=== PATIENT | male | born 1955 | race Caucasian/White ===

== ENCOUNTER 2016-08-21 08:24 | Emergency (ER) | payer MEDICARE, OTHER ==
[~2016-08-21 08:24] MED LIST: ATIV0.5T; DEPA500T; DEPA500T2; ZYPR10TA; ZYPR20TA
[2016-08-21] MEDS ORDERED: METF500T13 PO (08:37)
[2016-08-21] MEDS ORDERED: LORazepam 1 MG TAB PO STA (08:52)
[2016-08-21 08:57] LABS: MEAN CORPUSCULAR HEMOGLOBIN 32.7 pg (27.0-33.0); MEAN CORPUSCULAR HGB CONC 34.5 g/dl (32.0-36.5); MEAN CORPUSCULAR VOLUME 94.6 fl (80.0-96.0); RED CELL DISTRIBUTION WIDTH 12.8 % (11.5-14.5); WHITE BLOOD COUNT 9.6 K/mm3 (4.0-10.0)
[2016-08-21 09:40] LABS: ALBUMIN 3.5 GM/DL (3.2-5.2); ALBUMIN/GLOBULIN RATIO 1.13 (1.00-1.93); ALKALINE PHOSPHATASE 87 U/L (45-117); ALT/SGPT 29 U/L (12-78); ANION GAP 6 MEQ/L (8-16); AST/SGOT 13 U/L (15-37); BILIRUBIN,DIRECT 0.3 MG/DL (0.0-0.2); BILIRUBIN,TOTAL 0.9 MG/DL (0.2-1.0); BLOOD UREA NITROGEN 8 MG/DL (7-18); CALCIUM LEVEL 8.9 MG/DL (8.8-10.2); CARBON DIOXIDE LEVEL 32 MEQ/L (21-32); CHLORIDE LEVEL 102 MEQ/L (98-107); CREATININE FOR GFR 0.84 MG/DL (0.70-1.30); GLOMERULAR FILTRATION RATE > 60.0 (>49); GLUCOSE, FASTING 153 MG/DL (80-110); POTASSIUM SERUM 4.4 MEQ/L (3.5-5.1); SODIUM LEVEL 140 MEQ/L (136-145); TOTAL PROTEIN 6.6 GM/DL (6.4-8.2)
--- NOTE | 2016-08-21 10:09 | REP ---
Clinical: Cough . Comparison: None . Findings: The mediastinum and cardiac silhouette are stable and within normal limits for portable technique. The lung almodovar are clear without acute consolidation, effusion, or pneumothorax. Skeletal structures are intact. Impression: No acute cardiopulmonary process appreciated. Signed by Cristiano Marr MD 08/21/2016 10:01 A
[2016-08-21 12:34] VITALS: BP 116/75
--- NOTE | 2016-08-21 20:56 | ECGEPIP ---
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
== END 2016-08-21 12:36 | disposition left against medical advice (07) ==
LOC: M ED 08:24 → EDBD 08:24 → M ED 12:36
DX: F45.9 Somatoform disorder, unspecified (principal); F25.9 Schizoaffective disorder, unspecified; Z53.21 Procedure and treatment not carried out due to patient leaving prior to being seen by health care provider; F17.200 Nicotine dependence, unspecified, uncomplicated; Z79.84 Long term (current) use of oral hypoglycemic drugs; Z88.8 Allergy status to other drugs, medicaments and biological substances
CPT/HCPCS: 71010; 80048; 80076; 84443; 85027; 93005; 99284; G0480

== ENCOUNTER 2016-08-25 23:44 | Inpatient (IN) | payer MEDICARE, OTHER ==
[~2016-08-25] VITALS: Ht 177.8 cm; Wt 118.2 kg
[~2016-08-25 23:44] MED LIST changes: +METF500T13 PO
[2016-08-26 02:54] LABS: MEAN CORPUSCULAR HEMOGLOBIN 31.6 pg (27.0-33.0); MEAN CORPUSCULAR HGB CONC 33.1 g/dl (32.0-36.5); MEAN CORPUSCULAR VOLUME 95.6 fl (80.0-96.0); RED CELL DISTRIBUTION WIDTH 13.1 % (11.5-14.5); WHITE BLOOD COUNT 8.2 K/mm3 (4.0-10.0)
[2016-08-26 03:15] LABS: ALBUMIN 3.9 GM/DL (3.2-5.2); ALBUMIN/GLOBULIN RATIO 1.18 (1.00-1.93); ALKALINE PHOSPHATASE 91 U/L (45-117); ALT/SGPT 33 U/L (12-78); ANION GAP 6 MEQ/L (8-16); AST/SGOT 19 U/L (15-37); BILIRUBIN,DIRECT 0.2 MG/DL (0.0-0.2); BILIRUBIN,TOTAL 0.6 MG/DL (0.2-1.0); BLOOD UREA NITROGEN 8 MG/DL (7-18); CALCIUM LEVEL 9.3 MG/DL (8.8-10.2); CARBON DIOXIDE LEVEL 30 MEQ/L (21-32); CHLORIDE LEVEL 101 MEQ/L (98-107); CREATININE FOR GFR 0.76 MG/DL (0.70-1.30); GLOMERULAR FILTRATION RATE > 60.0 (>49); GLUCOSE, FASTING 120 MG/DL (80-110); METHADONE URINE NEGATIVE (NEGATIVE); POTASSIUM SERUM 4.3 MEQ/L (3.5-5.1); SODIUM LEVEL 137 MEQ/L (136-145); TOTAL PROTEIN 7.2 GM/DL (6.4-8.2)
[2016-08-26] MEDS ORDERED: PALIPERIDONE 6 MG ER TAB (INVEGA) PO SCH (09:00)
[2016-08-26 09:11] VITALS: BP 108/81
[2016-08-26] MEDS ORDERED: MOM 30ML SUSPENSION UDC PO PRN (10:30)
[2016-08-26] MEDS ORDERED: LORazepam 1 MG TAB PO PRN (10:30)
[2016-08-26] MEDS ORDERED: diphenhydrAMINE 50 MG CAP PO PRN (10:30)
[2016-08-26] MEDS ORDERED: traZODone 50 MG TAB PO PRN (10:30)
[2016-08-26] MEDS ORDERED: ACETAMINOPHEN TAB 650MG DOSE (2X325MG) PO PRN (10:30)
[2016-08-26] MEDS ORDERED: MAALOX 30 ML SUSP *UDC PO PRN (10:30)
[2016-08-26] MEDS: NICOTINE 21MG/24HR 1 EA TRANSDERMAL TD SCH (11:00)
--- NOTE | 2016-08-26 11:11 | HPEPDOC ---
Medical History and Physical Date of Admission Aug 26, 2016 at 05:47 History and Physical PCP: None ATTENDING: Dr. Gregg Rodriguez HPI: 61yoM admitted to [facility] for unspecified depressive disorder, being medically examined today. The pt is a poor historian and has difficulty answering questions. Pt states he has chronic pain, chronic back pain, hip pain and knee pain. He states he is disabled and wheel chair bound. Denies any fevers, chills, weakness, fatigue, CORTES, CP, SOB, cough, palpitations, abdominal pain, N/V/D or changes in bowel or bladder habits. PMHx: Schizoaffective disorder H/O alcohol use chronic pain, back pain, hip pain, knee pain. Unsteady gait GERD NIDDM obesity BMI 37.4 PSHX: denies SOCHX: [facility] in: [facility] Marital Status: Kids: 2 Employment: unemployed Tobacco use: 2-3 ppd ETOH: states 2 cans per day Illicit Drugs: marijuana IV Drug Use: Denies Tattoos done unprofessionally: Denies FAMHX: Mother: Alive, unknown Father: , [place] Siblings: 1 sister Alive, unknown Children: Alive, unknown Unexpected deaths due to medical reasons: None. ROS: As noted in HPI, otherwise 11pt ROS of systems reviewed and unremarkable. PE: GEN: 61yoM, appears stated age. Well-nourished, well developed. No acute distress. Alert. He has eyes closed throughout exam, difficult to answer questions, variable responses. Tangential speech. HEENT: Normocephalic, atraumatic. Pupils are equal, round, and reactive to light. Extraocular movements are intact. No nystagmus appreciated. Sclera are nonicteric. Conjunctiva without injection. Nose midline. Nasal turbinates without bogginess. EACs both patent BL. TMs both visualized and bell with good cone of light, no bulging or erythema. No facial asymmetry. Moist mucous membranes. Dentition poor. Pharynx pink and moist. Neck supple, trachea midline. No lymphadenopathy or thyromegaly appreciated. CHEST: Regular rate and rhythm, +S1, +S2 LUNGS: Clear to auscultation bilaterally. No wheezes, rales, or rhonchi. Breathing appears symmetric and easy. Patient is speaking in full sentences. No accessory muscle use. ABD: Round, soft, non-tender, non-distended. +Bowel sounds throughout. No rebound or guarding. No costovertebral angle tenderness. EXT: Pulses 2+ bilaterally dorsalis pedis and radial. No lower extremity edema appreciated. Chronic venous stasis changes LEs. SKIN: [place], dry, warm. No rashes. NEURO: Alert and oriented x 3. Cranial nerves III-XII are intact. No focal deficits appreciated. EK08/21/16 SINUS RHYTHM LOW VOLTAGE LIMB NO PRIOR FOR COMPARISON A&P: 61yoM admitted to [facility] for unspecified depressive disorder 1. Psych. Plan per Psychiatry. EKG on file. 2. Nicotine dependence. Patch available. 3. NIDDM. Pt has not been on any medications as outpt. BS 120 on admission, unclear if this was fasting. Check Hemoglobin A1c. Update fasting lipids. 4. Follow up. No Primary Care Provider. Will attempt to establish PCP on discharge. 5. H/O substance use. Per psychiatry. 6. Chronic pain. Pt states h/o chronic back pain, knee pain, hip pain. No specific or new complaints at this time. No medications as outpt. Tylenol as needed. Consider pain management opinion if needed. 7. Unsteady gait. Pt states he is wheelchair bound. Request PT eval and treat. Fall precautions. 8. Obesity. BMI 37.4. Complicates care. TSH WNL. 9. Staff member Fredis present throughout exam. Vital Signs Vital Signs Date Time Temp Pulse Resp B/P (MAP) Pulse Ox O2 Delivery O2 Flow Rate FiO2 08/26/16 09:12 20 92 Room Air 08/26/16 09:11 92 108/81 (90) 08/26/16 08:26 98.8 Laboratory Data Labs 24H Laboratory Tests 2 08/26/16 01:41: Anion Gap 6L, Glomerular Filtration Rate > 60.0, Calcium Level 9.3, Aspartate Amino Transf (AST/SGOT) 19, Alanine Aminotransferase (ALT/SGPT) 33, Alkaline Phosphatase 91, Total Bilirubin 0.6, Direct Bilirubin 0.2, Total Protein 7.2, Albumin 3.9, Albumin/Globulin Ratio 1.18, Thyroid Stimulating Hormone (TSH) 0.756, Salicylates Level 2.5L, Urine Amphetamines Screen NEGATIVE, Urine Benzodiazepines Screen NEGATIVE, Urine Opiates Screen NEGATIVE, Urine Methadone Screen NEGATIVE, Acetaminophen Level < 2.0L, Urine Barbiturates Screen NEGATIVE , Urine Phencyclidine Screen NEGATIVE, Urine Cocaine Metabolite Screen NEGATIVE , Urine Cannabinoids Screen NEGATIVE, Ethyl Alcohol Level < 0.003 CBC/BMP Laboratory Tests 08/26/16 01:41 Red Blood Count 5.82, Mean Corpuscular Volume 95.6, Mean Corpuscular Hemoglobin 31.6, Mean Corpuscular Hemoglobin Concent 33.1, Red Cell Distribution Width 13.1 Home Medications No Active Prescriptions or Reported Meds Allergies Coded Allergies: No Known Allergies (Verified , 03/25/09) Genie Browne Aug 26, 2016 11:11
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
[2016-08-26 18:00] VITALS: BP 134/72
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
[2016-08-27] MEDS: PALIPERIDONE 3 MG ER TAB (INVEGA) PO SCH (09:00)
[2016-08-27] MEDS: NICOTINE 21MG/24HR 1 EA TRANSDERMAL TD SCH (09:00)
[2016-08-27] MEDS ORDERED: OLANZapine ORAL DISINTEGRATING TAB 5MG PO PRN (17:45)
[2016-08-27] MEDS: LORazepam 1 MG TAB PO SCH (21:55)
[2016-08-28] MEDS: PALIPERIDONE 3 MG ER TAB (INVEGA) PO SCH ×2 (09:00→09:17)
[2016-08-28] MEDS: NICOTINE 21MG/24HR 1 EA TRANSDERMAL TD SCH ×2 (09:00→09:17)
[2016-08-28] MEDS: LORazepam 1 MG TAB PO SCH ×4 (09:00→21:00)
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
[2016-08-29] MEDS: NICOTINE 21MG/24HR 1 EA TRANSDERMAL TD SCH (09:00)
[2016-08-29] MEDS: LORazepam 1 MG TAB PO SCH ×3 (09:00→21:00)
[2016-08-29] MEDS: PALIPERIDONE 3 MG ER TAB (INVEGA) PO SCH (09:00)
--- NOTE | 2016-08-29 19:42 | IPN ---
DATE: 08/29/2016 VITAL SIGNS: Respirations 17. CURRENT MEDICATIONS: - Invega 3 mg at bedtime - trazodone 50 mg at bedtime as needed - Ativan 1 mg three times a day SUBJECTIVE: This is a 61-year-old white male with history of schizoaffective disorder and alcohol use disorder. The patient is isolating a lot today, spending most of his time in bed. He is not socializing with other patients or attending groups. He is encouraged to do so. The patient states his medications are fine but he had refused his psychotropics. He is urged to be medication compliant. MENTAL STATUS EXAMINATION: The patient is a poor historian. He is anxious. He is irritable. He is sad. He is depressed. He talks to himself. Grooming and hygiene are poor. The patient shows possible paranoia but does not cooperative with full mental status exam. DIAGNOSIS: Schizoaffective disorder, depressed. PLAN: Encourage psychotropics.
[2016-08-30] MEDS: LORazepam 1 MG TAB PO SCH ×3 (09:00→21:00)
[2016-08-30] MEDS: PALIPERIDONE 3 MG ER TAB (INVEGA) PO SCH (09:00)
[2016-08-30] MEDS: NICOTINE 21MG/24HR 1 EA TRANSDERMAL TD SCH (09:00)
--- NOTE | 2016-08-30 21:27 | IPN ---
DATE: 08/30/2016 VITAL SIGNS: Temperature 98.3, respirations 20. CURRENT MEDICATIONS: - Invega 3 mg daily, patient refusing HISTORY OF PRESENT ILLNESS: The patient is seen in bed again today. He refuses to cooperate with an interview. He is isolating in bed all day long, according to staff. He is not taking his medications, mentioned above. The patient refuses to explain his lack of cooperation. MENTAL STATUS EXAMINATION: The patient is oppositional. He is not responsive to questions. He opens his eyes briefly, only to shut them again. Subsequently, I am not able to perform an appropriate mental status examination. The patient is seen lying in bed the entire duration of the day. He refuses to answer any questions to ascertain if he is depressed, suicidal, or homicidal or if he is hallucinating. DIAGNOSIS: Schizoaffective disorder, depressed. PLAN: Encourage hospital milieu. Encourage cooperation with psychotropic agents. SHELBY
[2016-08-31] MEDS: PALIPERIDONE 3 MG ER TAB (INVEGA) PO SCH (09:00)
[2016-08-31] MEDS: NICOTINE 21MG/24HR 1 EA TRANSDERMAL TD SCH (09:00)
[2016-08-31] MEDS: LORazepam 1 MG TAB PO SCH ×3 (09:00→21:00)
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
[2016-09-01] MEDS: LORazepam 1 MG TAB PO SCH (08:56)
[2016-09-01] MEDS: PALIPERIDONE 3 MG ER TAB (INVEGA) PO SCH (08:56)
[2016-09-01] MEDS: NICOTINE 21MG/24HR 1 EA TRANSDERMAL TD SCH (08:56)
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
[2016-09-01] MEDS ORDERED: LORazepam 1 MG TAB PO PRN (15:15)
[2016-09-02] MEDS: PALIPERIDONE 3 MG ER TAB (INVEGA) PO SCH (08:42)
[2016-09-02] MEDS: NICOTINE 21MG/24HR 1 EA TRANSDERMAL TD SCH (08:42)
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
[2016-09-03] MEDS: NICOTINE 21MG/24HR 1 EA TRANSDERMAL TD SCH (09:00)
[2016-09-03] MEDS: PALIPERIDONE 3 MG ER TAB (INVEGA) PO SCH (10:09)
[2016-09-03] MEDS ORDERED: INVE234I IM (10:52)
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
[2016-09-04] MEDS: PALIPERIDONE 3 MG ER TAB (INVEGA) PO SCH (08:50)
[2016-09-04] MEDS: NICOTINE 21MG/24HR 1 EA TRANSDERMAL TD SCH (08:52)
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
[2016-09-04 10:00] VITALS: BP 132/86
[2016-09-04 11:25] LABS: BASO # 0.1 K/mm3 (0.0-0.2); BASO % 1.1 % (0.0-1.0); EOS # 0.2 K/mm3 (0.0-0.50); EOS % 2.7 % (0.0-3.0); LARGE UNSTAINED CELL # 0.2 K/mm3 (0.0-0.4); LARGE UNSTAINED CELL % 2.6 % (0.0-4.0); LYMPH # 1.8 K/mm3 (1.5-4.5); MEAN CORPUSCULAR HEMOGLOBIN 32.6 pg (27.0-33.0); MONO # 0.8 K/mm3 (0.0-0.8); MONO % 9.2 % (0.0-5.0); NEUTROPHILS # 5.4 K/mm3 (1.8-7.7); NEUTROPHILS % 63.4 % (36.0-66.0); PLATELET COUNT, AUTOMATED 237 k/mm3 (150-450); RED CELL DISTRIBUTION WIDTH 12.7 % (11.5-14.5); WHITE BLOOD COUNT 8.6 K/mm3 (4.0-10.0)
[2016-09-04 11:58] LABS: ALBUMIN 3.6 GM/DL (3.2-5.2); ALKALINE PHOSPHATASE 89 U/L (45-117); ALT/SGPT 45 U/L (12-78); ANION GAP 7 MEQ/L (8-16); AST/SGOT 20 U/L (15-37); BILIRUBIN,TOTAL 0.4 MG/DL (0.2-1.0); BLOOD UREA NITROGEN 13 MG/DL (7-18); CALCIUM LEVEL 9.1 MG/DL (8.8-10.2); CARBON DIOXIDE LEVEL 28 MEQ/L (21-32); CHLORIDE LEVEL 101 MEQ/L (98-107); CHOLESTEROL LEVEL 120 MG/DL (<200); CREATININE FOR GFR 0.76 MG/DL (0.70-1.30); GLOMERULAR FILTRATION RATE > 60.0 (>49); GLUCOSE, FASTING 110 MG/DL (80-110); POTASSIUM SERUM 4.1 MEQ/L (3.5-5.1); SODIUM LEVEL 136 MEQ/L (136-145); TOTAL PROTEIN 6.6 GM/DL (6.4-8.2); TRIGLYCERIDES LEVEL 112 MG/DL (<150)
[2016-09-05] MEDS: metFORMIN (GLUCOPHAGE) 500 MG TAB PO SCH ×4 (08:00→17:09)
[2016-09-05] MEDS: PALIPERIDONE 3 MG ER TAB (INVEGA) PO SCH ×2 (08:23→08:59)
[2016-09-05] MEDS: NICOTINE 21MG/24HR 1 EA TRANSDERMAL TD SCH (08:23)
[2016-09-06] MEDS: PALIPERIDONE 3 MG ER TAB (INVEGA) PO SCH (08:23)
[2016-09-06] MEDS: metFORMIN (GLUCOPHAGE) 500 MG TAB PO SCH ×3 (08:23→17:01)
[2016-09-06] MEDS: NICOTINE 21MG/24HR 1 EA TRANSDERMAL TD SCH (08:24)
[2016-09-06 18:00] VITALS: BP 161/90
[2016-09-07] MEDS: metFORMIN (GLUCOPHAGE) 500 MG TAB PO SCH ×4 (08:00→17:23)
[2016-09-07] MEDS: PALIPERIDONE 3 MG ER TAB (INVEGA) PO SCH ×2 (09:00→10:24)
[2016-09-07] MEDS: NICOTINE 21MG/24HR 1 EA TRANSDERMAL TD SCH (09:00)
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
[2016-09-08] MEDS: metFORMIN (GLUCOPHAGE) 500 MG TAB PO SCH ×3 (08:57→17:00)
[2016-09-08] MEDS: PALIPERIDONE 3 MG ER TAB (INVEGA) PO SCH (08:57)
[2016-09-08] MEDS: NICOTINE 21MG/24HR 1 EA TRANSDERMAL TD SCH (09:00)
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
[2016-09-09] MEDS: PALIPERIDONE 3 MG ER TAB (INVEGA) PO SCH (09:26)
[2016-09-09] MEDS: metFORMIN (GLUCOPHAGE) 500 MG TAB PO SCH ×3 (09:27→18:00)
[2016-09-09] MEDS: NICOTINE 21MG/24HR 1 EA TRANSDERMAL TD SCH (09:27)
[2016-09-09] MEDS: TUBERCULIN PPD 5 UNITS/0.1 ML ID ONE ×2 (10:00→10:32)
[2016-09-09 10:31] VITALS: BP 110/60
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
[2016-09-10] MEDS: metFORMIN (GLUCOPHAGE) 500 MG TAB PO SCH ×3 (08:00→18:00)
[2016-09-10] MEDS: PALIPERIDONE 3 MG ER TAB (INVEGA) PO SCH (08:55)
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
[2016-09-11] MEDS ORDERED: PPD DOCUMENTATION ENTRY MISC XX ONE (10:00)
[2016-09-11] MEDS: PALIPERIDONE 3 MG ER TAB (INVEGA) PO SCH (10:38)
[2016-09-11] MEDS: metFORMIN (GLUCOPHAGE) 500 MG TAB PO SCH ×3 (10:39→17:12)
[2016-09-11] MEDS ORDERED: GLUC500T PO (17:37)
[2016-09-11] MEDS ORDERED: TRAZO50TA PO (17:37)
[2016-09-11] MEDS ORDERED: DIPH50CA PO (17:37)
[2016-09-11] MEDS ORDERED: PALI1TAB2 PO (17:37)
[2016-09-11 18:00] VITALS: BP 133/68
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
== END 2016-09-12 02:00 | DRG 885 ==
LOC: M ED 23:44 → M ED INP 08-26 05:47 → M PSY 08-26 08:45
PROVIDERS: ADMIT Psychiatry & Neurology Psychiatry; ATTEND Psychiatry & Neurology Psychiatry
DX: F25.9 Schizoaffective disorder, unspecified (principal); F60.2 Antisocial personality disorder; Z79.899 Other long term (current) drug therapy; Z88.8 Allergy status to other drugs, medicaments and biological substances; K21.9 Gastro-esophageal reflux disease without esophagitis; E11.9 Type 2 diabetes mellitus without complications; E66.9 Obesity, unspecified; Z68.37 Body mass index [BMI] 37.0-37.9, adult; M54.5 Low back pain; F17.200 Nicotine dependence, unspecified, uncomplicated; G89.29 Other chronic pain; R26.89 Other abnormalities of gait and mobility